=== PATIENT | female | born 1970 | race American Indian/Alaskan Native ===

== ENCOUNTER 2016-12-20 14:04 | Emergency (ER) | payer SELFPAY ==
[2016-12-20 19:06] LABS: Basophils % (Auto) 1.3 % (0.0-1.8); Eosinophils % (Auto) 3.9 % (0.0-4.3); Hematocrit 41.2 % (30.3-42.9); Hemoglobin 13.4 gm/dl (10.1-14.3); Mean Corpuscular HGB Conc 33 % (30-34); Mean Corpuscular Hemoglobin 28 pg (28-32); Mean Corpuscular Volume 85 fl (79-97); Platelet Count 268 K/mm3 (140-440); Red Blood Count 4.82 M/mm3 (3.65-5.03); White Blood Count 6.2 K/mm3 (4.5-11.0)
[2016-12-20 19:12] LABS: Anion Gap 16 mmol/L; BUN/Creatinine Ratio 13.75; Blood Urea Nitrogen 11 mg/dL (7-17); Calcium 9.9 mg/dL (8.4-10.2); Carbon Dioxide 27 mmol/L (22-30); Chloride 99.7 mmol/L (98-107); Glucose 89 mg/dL (65-100); Potassium 3.7 mmol/L (3.6-5.0); Sodium 139 mmol/L (137-145)
--- NOTE | 2016-12-20 21:32 | Emergency Department Report ---
ED Chest Pain HPI - General Chief Complaint: Chest Pain Stated Complaint: CHEST AND HIP PAIN Source: patient, RN notes reviewed, old records reviewed Mode of arrival: Ambulatory Limitations: No Limitations - History of Present Illness Initial Comments: This is a 46-year-old female. She is previously unknown to me. She currently does not have a primary care doctor. She reports a past medical history of borderline diabetes, and hysterectomy in 1997. The patient presents to the ER complaining of chest pain. The chest pain is left-sided, and present intermittently for a month. It is not associated with shortness of breath, vomiting or diaphoresis. It worsens when she lays on her left side. It does not radiate to the back, arms or neck. The patient also complains of left arm pain, and left hip/left leg pain, which does not radiate from the chest pain. Sometimes they happen simultaneously, sometimes they do not. 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 There is no hematemesis. There is no bright red blood per rectum. There is no midline neck pain. There is no extremity weakness. There is no extremity numbness. There is no ataxia. There is no saddle anesthesia. She has not taken any pain medication. MD Complaint: chest pain -: Gradual Onset: during rest Pain Location: left chest Quality: aching Consistency: intermittent Improves With: rest Worsens With: palpation, movement Context: recent travel Other Symptoms: denies: cough, fever, syncope, rash, acid taste in mouth, leg swelling Aspirin use within the Past 7 Days: (0) No - Related Data On Oral Contraceptives: No Previous Rx's Medication Instructions Recorded Last Taken Type oxyCODONE /ACETAMINOPHEN [Percocet 1 tab PO Q6H PRN #10 tablet 03/19/14 Unknown Rx 5/325 mg] Ketorolac [Toradol] 10 mg PO Q6H PRN #20 tablet 12/20/16 Unknown Rx Allergies Allergy/AdvReac Type Severity Reaction Status Date / Time No Known Allergies Allergy Unverified 03/17/14 18:35 RITCHIE score - Ritchie Score Age > 65: (0) No Aspirin use within the Past 7 Days: (0) No 3 or more CAD Risk Factors: (0) No 2 or more Angina events in past 24 hrs: (0) No Known CAD with more than 50% Stenosis: (0) No Elevated Cardiac Markers: (0) No ST Deviation Greater than 0.5mm: (0) No RITCHIE Score: 0 ED Review of Systems ROS: Stated complaint: CHEST AND HIP PAIN Other details as noted in HPI Constitutional: denies: fever, malaise Eyes: denies: vision change ENT: denies: epistaxis Respiratory: denies: cough Cardiovascular: chest pain Gastrointestinal: denies: abdominal pain Genitourinary: denies: urgency, dysuria Musculoskeletal: arthralgia, myalgia Skin: denies: lesions Neurological: denies: headache Psychiatric: as per HPI ED Past Medical Hx - Past Medical History Previous Medical History?: Yes Hx Congestive Heart Failure: No Hx Diabetes: Yes (borderline) Hx Asthma: No Hx COPD: No - Surgical History Past Surgical History?: Yes Additional Surgical History: hysterectomy 1997. left knee surgery - Social History Smoking Status: Unknown if ever smoked Substance Use Type: None - Medications Home Medications: Home Medications Medication Instructions Recorded Confirmed Last Taken Type oxyCODONE /ACETAMINOPHEN [Percocet 1 tab PO Q6H PRN #10 tablet 03/19/14 Unknown Rx 5/325 mg] Ketorolac [Toradol] 10 mg PO Q6H PRN #20 tablet 12/20/16 Unknown Rx ED Physical Exam - General Limitations: No Limitations General appearance: alert, in no apparent distress - Head Head exam: Present: atraumatic, normocephalic - Eye Eye exam: Present: normal appearance, EOMI. Absent: nystagmus - ENT ENT exam: Present: normal exam, normal orophraynx, mucous membranes moist, normal external ear exam - Neck Neck exam: Present: normal inspection, full ROM. Absent: tenderness, meningismus - Respiratory Respiratory exam: Present: normal lung sounds bilaterally, chest wall tenderness , other (there is reproducible left-sided chest wall tenderness. The breast examination is unremarkable. During the breast examination, I am escorted by ER nurse Olga Buchanan). Absent: respiratory distress, wheezes, rales, rhonchi, stridor - Cardiovascular Cardiovascular Exam: Present: regular rate, normal rhythm, normal heart sounds. Absent: bradycardia, tachycardia, irregular rhythm, systolic murmur, diastolic murmur, rubs, gallop - GI/Abdominal GI/Abdominal exam: Present: soft, normal bowel sounds. Absent: distended, tenderness, guarding, rebound, rigid, pulsatile mass - Extremities Exam Extremities exam: Present: normal inspection, full ROM, normal capillary refill , other (compartments are soft. There are 2+ pulses in 4 extremities. Sensation is intact to light touch, proprioception and pinprick in the bilateral upper and lower extremities. The patient walks with a steady gait.). Absent: tenderness, pedal edema, joint swelling, calf tenderness - Back Exam Back exam: Present: normal inspection, full ROM. Absent: tenderness, CVA tenderness (R), CVA tenderness (L), muscle spasm, paraspinal tenderness, vertebral tenderness - Neurological Exam Neurological exam: Present: alert, oriented X3, normal gait, other (Extraocular movements intact. Tongue midline. No facial droop. Facial sensation intact to light touch in the V1, V2, V3 distribution bilaterally. 5 and 5 strength in 4 extremities.. Sensation is intact to light touch in 4 extremities.). Absent : motor sensory deficit - Psychiatric Psychiatric exam: Present: normal affect, normal mood - Skin Skin exam: Present: warm, dry, intact, normal color. Absent: rash ED Course Vital Signs 12/20/16 12/20/16 12/20/16 14:23 22:06 22:15 Temperature 98.8 F Pulse Rate 75 56 L Respiratory 16 9 L 16 Rate Blood Pressure 131/85 125/79 Blood Pressure [Left] O2 Sat by Pulse 100 96 Oximetry 12/20/16 22:16 Temperature Pulse Rate 58 L Respiratory 14 Rate Blood Pressure Blood Pressure 125/79 [Left] O2 Sat by Pulse 98 Oximetry - Reevaluation(s) Reevaluation #1: 12/20/16 22:16 Differential diagnosis: Costochondritis, radiculopathy, acute coronary syndrome , pneumonia, pulmonary embolus Assessment and plan: 46-year-old female with 1 month of intermittent chest pain. She is afebrile with reassuring vital signs. Low risk by RITCHIE score, low risk by heart score, EKG is morphologically unremarkable 2, patient had a negative nuclear stress test in 2013, troponins are negative and multiple sets. Patient low risk by well's criteria, but does have risk factor for pulmonary embolus insofar as she is a long distance local owner operator truck driver. she is perc negative, but a d-dimer was sent to risk stratify the patient for pulmonary embolus. She has 5/5 strength, with appropriate sensation, walks with a steady gait, is currently no clinical indication of epidural compression syndrome. Her pain will be treated symptomatically at this time. D-dimer is pending. Reevaluation #2: 12/20/16 22:46 D-dimer negative. Feels improved. Patient will be discharged. ED Medical Decision Making - Lab Data Result diagrams: 12/20/16 18:32 12/20/16 18:32 Vital Signs 12/20/16 14:23 Temperature 98.8 F Pulse Rate 75 Respiratory 16 Rate Blood Pressure 131/85 O2 Sat by Pulse 100 Oximetry Lab Results 12/20/16 12/20/16 12/20/16 Range/Units 18:32 18:32 20:46 WBC 6.2 (4.5-11.0) K/mm3 RBC 4.82 (3.65-5.03) M/mm3 Hgb 13.4 (10.1-14.3) gm/dl Hct 41.2 (30.3-42.9) % MCV 85 (79-97) fl MCH 28 (28-32) pg MCHC 33 (30-34) % RDW 14.0 (13.2-15.2) % Plt Count 268 (140-440) K/mm3 Lymph % (Auto) 44.6 H (13.4-35.0) % [place] % (Auto) 8.3 H (0.0-7.3) % Eos % (Auto) 3.9 (0.0-4.3) % Baso % (Auto) 1.3 (0.0-1.8) % Lymph # 2.7 (1.2-5.4) K/mm3 [place] # 0.5 (0.0-0.8) K/mm3 Eos # 0.2 (0.0-0.4) K/mm3 Baso # 0.1 (0.0-0.1) K/mm3 Seg Neutrophils % 41.9 (40.0-70.0) % Seg Neutrophils # 2.6 (1.8-7.7) K/mm3 PT (12.2-14.9) Sec. INR (0.87-1.13) Sodium 139 (137-145) mmol/L Potassium 3.7 (3.6-5.0) mmol/L Chloride 99.7 (98-107) mmol/L Carbon Dioxide 27 (22-30) mmol/L Anion Gap 16 mmol/L BUN 11 (7-17) mg/dL Creatinine 0.8 (0.7-1.2) mg/dL Estimated GFR > 60 ml/min BUN/Creatinine Ratio 13.75 % Glucose 89 (65-100) mg/dL Calcium 9.9 (8.4-10.2) mg/dL Troponin T < 0.010 < 0.010 (0.00-0.029) ng/mL 12/20/16 Range/Units 20:46 WBC (4.5-11.0) K/mm3 RBC (3.65-5.03) M/mm3 Hgb (10.1-14.3) gm/dl Hct (30.3-42.9) % MCV (79-97) fl MCH (28-32) pg MCHC (30-34) % RDW (13.2-15.2) % Plt Count (140-440) K/mm3 Lymph % (Auto) (13.4-35.0) % [place] % (Auto) (0.0-7.3) % Eos % (Auto) (0.0-4.3) % Baso % (Auto) (0.0-1.8) % Lymph # (1.2-5.4) K/mm3 [place] # (0.0-0.8) K/mm3 Eos # (0.0-0.4) K/mm3 Baso # (0.0-0.1) K/mm3 Seg Neutrophils % (40.0-70.0) % Seg Neutrophils # (1.8-7.7) K/mm3 PT 12.6 (12.2-14.9) Sec. INR 0.95 (0.87-1.13) Sodium (137-145) mmol/L Potassium (3.6-5.0) mmol/L Chloride (98-107) mmol/L Carbon Dioxide (22-30) mmol/L Anion Gap mmol/L BUN (7-17) mg/dL Creatinine (0.7-1.2) mg/dL Estimated GFR ml/min BUN/Creatinine Ratio % Glucose (65-100) mg/dL Calcium (8.4-10.2) mg/dL Troponin T (0.00-0.029) ng/mL - EKG Data 12/20/16 22:18 EKG #1 demonstrates normal sinus, 75 beats per minute, QTC 450 ms, motion artifact, not morphologically consistent with STEMI. Repeat EKG demonstrates sinus bradycardia, 58 bpm, normal intervals, normal axis , not morphologically consistent with STEMI. - Radiology Data Radiology results: image reviewed interpreted by me: x ray of The chest is negative for acute disease Critical care attestation.: If time is entered above; I have spent that time in minutes in the direct care of this critically ill patient, excluding procedure time. ED Disposition Clinical Impression: Chest wall pain Disposition: DISCHARGED TO HOME OR SELFCARE Is pt being admited?: No Does the pt Need Aspirin: No Condition: Good Instructions: Chest Pain (ED), Costochondritis (ED) Additional Instructions: Take the pain medication as directed. Rest and avoid heavy lifting. Follow-up with the primary care doctor or applications programmer within the next 3-[address] Carly Lucas is a local primary care doctor. Dr. Yarbrough is the applications programmer who interpreted your stress test in 2013. Return to the ER right away with you pain, worsened pain, migration of pain, fevers or chills, intractable nausea or vomiting, inability to tolerate liquid feeds. Discontinued tobacco consumption; tobacco is not healthy for you. Prescriptions: Ketorolac [Toradol] 10 mg PO Q6H PRN #20 tablet PRN Reason: Pain Referrals: PRIMARY CARE, [Primary Care Provider] - 3-5 Days CARLY LUCAS MD [Staff Physician] - 3-5 Days REMI YARBROUGH MD [Staff Physician] - 3-5 Days
[2016-12-20] MEDS ORDERED: TORADOL ONE (21:50)
[2016-12-20] MEDS ORDERED: TORADOL IM ONE (21:54)
[2016-12-20 22:11] LABS: INR 0.95 (0.87-1.13)
[2016-12-20 22:20] VITALS: BP 125/79
--- NOTE | 2016-12-21 10:08 | XRay Report ---
Single view chest: History: Chest pain. Findings: Normal cardiomediastinal silhouette. Trachea is midline. No consolidation, pneumothorax or pleural effusion. Impression: No acute cardiopulmonary findings.
== END 2016-12-20 23:15 | disposition home or self-care (01) ==
LOC: ED 14:04
DX: R07.89 Other chest pain (principal)
CPT/HCPCS: 36415; 71020; 80048; 84484; 85025; 85379; 85610; 93005; 93010; 96372; 99285; J1885